=== PATIENT | female | born 1985 | race Caucasian/White ===

== ENCOUNTER 2019-06-06 10:38 | Emergency (ER) | payer MEDICAID, OTHER ==
[2019-06-06 11:56] VITALS: BP 140/80
--- NOTE | 2019-06-06 12:13 | UC ---
Complaint Female HPI - HPI Summary HPI Summary: 33-year-old female presents with 4 day history of progressively worsening low back pain. States has pain on both sides of her lower back however left side is worse than right. Pain is nonradiating. Worsens with movement. Denies any alleviating factors. States 2 days ago she thought she saw some blood in the urine. Patient reports that she had similar symptoms after the of her youngest child was hospitalized with a pyelonephritis. States the pain that she is having is very similar to that episode therefore she took a single dose of Azo yesterday. Mild nausea. 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 Denies fever, chills, abdominal pain, vomiting, diarrhea, dysuria, frequency, urgency, vaginal discharge, dyspareunia, abnormal vaginal bleeding, numbness, tingling, or weakness of the lower extremities, loss of bowel or bladder control. - History Of Current Complaint Chief Complaint: UCGU Stated Complaint: CLOUDY URINE,LOW BACK PAIN Time Seen by Provider: 06/06/19 11:51 Hx Obtained From: Patient Hx Last Menstrual Period: 05/29/19 Pain Intensity: 8 - Allergies/Home Medications Allergies/Adverse Reactions: Allergies Allergy/AdvReac Type Severity Reaction Status Date / Time latex Allergy Rash Verified 06/06/19 11:57 morphine Allergy Rash Verified 06/06/19 11:57 PMH/Surg Hx/FS Hx/Imm Hx Previously Healthy: Yes - Denies significant PMH - Surgical History Surgical History: Yes Surgery Procedure, Year, and Place: 3 C-SECTS. GLANGLION CYST REMOVED RIGHT WRIST. TUBAL LIGATION - Family History Known Family History: Positive: Other - gall bladder disease - Social History Occupation: Employed Full-time Lives: With Family Alcohol Use: Occasionally Substance Use Type: None Smoking Status (MU): Heavy Every Day Tobacco Smoker Type: Cigarettes Amount Used/How Often: 1-11/2 pack daily Length of Time of Smoking/Using Tobacco: since age 14 Have You Smoked in the Last Year: Yes Review of Systems All Other Systems Reviewed And Are Negative: Yes Constitutional: Positive: Chills, Fatigue. Negative: Fever Skin: Negative: Rash Respiratory: Positive: Negative Cardiovascular: Positive: Negative Gastrointestinal: Positive: Nausea. Negative: Abdominal Pain, Vomiting, Diarrhea Genitourinary: Positive: Hematuria, Other - See HPI. Negative: Dysuria, Frequency, Urgency, Vaginal/Penile Discharge, Abnormal Bleeding Motor: Negative: Weakness Neurovascular: Negative: Decreased Sensation Musculoskeletal: Negative: Arthralgia, Myalgia Psychological: Positive: Negative Physical Exam - Summary Physical Exam Summary: GENERAL APPEARANCE: Well developed, well nourished, alert and cooperative, and appears to be in no acute distress. CARDIAC: Normal S1 and S2. No S3, S4 or murmurs. Rhythm is regular. There is no peripheral edema, cyanosis or pallor. Extremities are warm and well perfused. Capillary refill is less than 2 seconds. Peripheral pulses intact. LUNGS: Clear to auscultation without rales, rhonchi, wheezing or diminished breath sounds. ABDOMEN: Positive bowel sounds. Soft, nondistended, nontender. No guarding or rebound. No masses or hepatosplenomegally. MUSKULOSKELETAL: ROM intact to all extremities. No joint erythema or tenderness. Normal muscular development. Normal gait. BACK: Examination of the spine reveals no midline spinal deformity or tenderness. There is soft tissue paraspinous tenderness of the lumbar back, left > right, without spasm. SKIN: Skin normal color, texture and turgor with no lesions or eruptions. Triage Information Reviewed: Yes Vital Signs: Initial Vital Signs Temp 98.1 F 06/06/19 11:48 Pulse 103 06/06/19 11:48 Resp 16 06/06/19 11:48 BP 140/80 06/06/19 11:48 Pulse Ox 99 06/06/19 11:48 Vital Signs Reviewed: Yes Diagnostics - Radiology No standard instances Radiology Interpretation Completed By: Radiologist Summary of Radiographic Findings: Order Information: CT ABD/PEL W/O. Accession Number: [id number]. CPT: 70643. INDICATION: Right greater than left abdominal pain. Clinical concern for kidney stone. COMPARISON: There are no relevant prior studies available for comparison. TECHNIQUE: A CT scan of the abdomen and pelvis was performed without intravenous and without oral contrast. Contiguous axial sections were obtained from the lung bases through the symphysis pubis. Images were reconstructed in the coronal and sagittal planes. FINDINGS: Visceral evaluation is limited without contrast. LUNG BASES: There is mild dependent bilateral lower lobe subsegmental atelectasis. No. pleural effusion is present. LIVER: The liver is normal in size. No significant focal abnormality is seen on this noncontrast study. GALLBLADDER: No calcified gallstones are seen. BILE DUCTS: No intra or extrahepatic ductal distention is seen. SPLEEN: The spleen is normal in size without significant focal abnormality. PANCREAS: The pancreas is normal in size. No ductal distention or calcifications are seen. ADRENAL GLANDS: The adrenal glands are normal in size. KIDNEYS: The kidneys are normal in size. No renal calculi or hydronephrosis is seen. AORTA: The aorta is normal in caliber without significant calcific plaque. LYMPH NODES: No significantly enlarged lymph nodes are seen. BOWEL: The stomach, small and large bowel appear nondistended. The appendix appears to bewithin normal limits. There are scattered diverticula within the colon. There is no evidence for diverticulitis or colitis. PELVIC ORGANS: The collapsed urinary bladder is unremarkable. It does not contain any deep and calculi. The normally positioned ovaries, which contain cysts, are within normal limits of size. Fallopian tubal ligation has been performed. PERITONEUM: No free intraperitoneal air or fluid is seen. BONES: No significant focal osseous abnormality is seen. IMPRESSION: NO CLEAR ETIOLOGY FOR ABDOMINAL PAIN. SPECIFICALLY, NO HYDRONEPHROSIS OR NEPHROLITHIASIS. Complaint Female Dx - Course Course Of Treatment: 33-year-old female presents with 4 day history of progressively worsening low back pain. States has pain on both sides of her lower back however left side is worse than right. Pain is nonradiating. Worsens with movement. Denies any alleviating factors. States 2 days ago she thought she saw some blood in the urine. Patient reports that she had similar symptoms after the of her youngest child was hospitalized with a pyelonephritis. States the pain that she is having is very similar to that episode therefore she took a single dose of Azo yesterday. Mild nausea. 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 Denies fever, chills, abdominal pain, vomiting, diarrhea, dysuria, frequency, urgency, vaginal discharge, dyspareunia, abnormal vaginal bleeding, numbness, tingling, or weakness of the lower extremities, loss of bowel or bladder control. Afebrile. Hypertensive and mildly tachycardic otherwise vital signs stable. Patient had soft tissue paraspinous tenderness of the lumbar back, left > right, without spasm and otherwise unremarkable exam. Patient was given ketorolac 30 mg IM for pain. [id number] urinalysis showed positive nitrites , 1+ protein, 1+ urobilinogen, but no leukocyte esterase or blood. With the patient's progressively worsening pain and history of pyelonephritis with similar presentation a CT scan of the abdomen and pelvis was obtained and showed no acute pathology and specifically no renal calculi or hydronephrosis. Discussed findings with patient. I suspect that her back pain is musculoskeletal origin and will treat conservatively with NSAIDs, muscle relaxant, and heat therapy. With the positive nitrites and her urinalysis we' ll also treat her empirically for a UTI with Bactrim DS 1 tab twice a day 7 days pending the urine culture results. She is to follow-up with her primary care provider in 3 days especially if symptoms persist. Anticipatory guidance and warning symptoms were reviewed with the patient. Verbalizes understanding and agrees with plan of care. - Differential Dx/Diagnosis Differential Diagnosis/HQI/PQRI: Pelvic Inflammatory Disease, , Renal Colic, Urinary Tract Infection Provider Diagnosis: Low back pain, UTI (urinary tract infection) Discharge - Sign-Out/Discharge Documenting (check all that apply): Patient Departure All imaging exams completed and their final reports reviewed: No Studies - Discharge Plan Condition: Stable Disposition: HOME Prescriptions: Cyclobenzaprine HCl 10 mg PO Q8HR PRN #15 tablet PRN Reason: Spasms - Back Naproxen [Naproxen 500 mg tab] 500 mg PO BID #30 tablet Sulfamethox/Trimethoprim DS* [Bactrim DS 800/160 TAB*] 1 tab PO BID #14 tab Patient Education Materials: Urinary Tract Infection in Women (ED), Acute Low Back Pain (ED) Forms: *Work Release Referrals: Robby Calvo PA [Primary Care Provider] - 3 Days Additional Instructions: The CT scan performed in the clinic today did not show any evidence of a kidney stone or kidney infection. I suspect that sure low back pain is likely musculoskeletal in origin. You were given an injection of a anti-inflammatory pain medication called ketorolac at 12:30 in the clinic today. You should not take any other anti- inflammatory medications such as ibuprofen (Advil, Motrin), naproxen (Aleve), or aspirin for at least 8 hours after receiving this medication. You may take acetaminophen (Tylenol) according directions if needed for pain. Starting tonight take naproxen 500 mg 1 tablet every 12 hours for the next 5 days there may take every 12 hours as needed for pain. Take cyclobenzaprine 1 tablet every 8 hours as needed for severe pain or spasm. This medication will cause drowsiness and to not take and drive or operate machinery. Try using a heating pad to the affected area for 15-20 minutes at least 4 times a day to help with the pain into relax the muscles. The urine test performed in the clinic today suggested a possible urinary tract infection. We will also send a urine culture today to see what bacteria grow out and make sure the antibiotic you were prescribed is appropriate to treat the infection. It will take 48-72 hours to get these results. We will contact you if there is any change in your treatment plan. Start Bactrim DS 1 tablet twice a day for 7 days. Take Pyridium 1 tablet every 8 hours for next 2 days to help with the discomfort. This medication will turn your urine an orange color. Drink plenty of fluids. To help prevent urinary tract infections: 1) Be sure to wipe from front to back. 2) Urinate immediately after any sexual intercourse. 3) Avoid taking bubble baths. Follow up with your primary care provider in 3 days if symptoms persist. Seek immediate medical attention in the emergency room if you develop fever greater than 100.5 F, have severe abdominal pain, persistent vomiting, numbness , tingling, weakness of the lower extremities, you're unable to ambulate, he lose control of her bowel or bladder, or have any worsening of symptoms. - Billing Disposition and Condition Condition: STABLE Disposition: Home
[2019-06-06] MEDS ORDERED: Ketorolac INJ* 30 MG/ML 1 ML VIAL IM ONE (12:22)
== END 2019-06-06 13:56 | disposition home or self-care (01) ==
LOC: UCCORT 10:38
DX: M54.5 Low back pain (principal); N39.0 Urinary tract infection, site not specified; F17.210 Nicotine dependence, cigarettes, uncomplicated
CPT/HCPCS: 74176; 81003; 84702; 87086; 96372; 99212; G0463; J1885